=== PATIENT | male | born 1965 | race Caucasian/White ===

== ENCOUNTER 2018-02-27 14:35 | Emergency (ER) | payer MEDICAID ==
[~2018-02-27] VITALS: Ht 167.6 cm; Wt 79.5 kg
[~2018-02-27 14:35] MED LIST: AMOX-441 PO; LEVO100T PO; LORA-660 PO
[2018-02-27 14:43] VITALS: BP 117/83
== END 2018-02-27 17:21 | disposition home or self-care (01) ==
LOC: ER 14:35
DX: H92.02 Otalgia, left ear (principal); F15.90 Other stimulant use, unspecified, uncomplicated; Z00.00 Encounter for general adult medical examination without abnormal findings; Z79.899 Other long term (current) drug therapy
CPT/HCPCS: 99281

== ENCOUNTER 2018-06-04 18:25 | Emergency (ER) | payer MEDICAID ==
[~2018-06-04] VITALS: Ht 167.6 cm; Wt 79.5 kg
[2018-06-04 18:35] VITALS: BP 137/92
== END 2018-06-04 18:58 | disposition home or self-care (01) ==
LOC: ER 18:25
DX: Z02.89 Encounter for other administrative examinations (principal); F17.200 Nicotine dependence, unspecified, uncomplicated; F15.90 Other stimulant use, unspecified, uncomplicated; Z79.899 Other long term (current) drug therapy
CPT/HCPCS: 99281

== ENCOUNTER 2018-08-07 17:36 | Emergency (ER) | payer MEDICAID ==
[~2018-08-07] VITALS: Ht 167.6 cm; Wt 79.5 kg
[2018-08-07 17:47] VITALS: BP 130/86
--- NOTE | 2018-08-07 18:03 | NUR ---
Jac LEES stated to place verbal order for IM rocephin 250 mg now STAT.
[2018-08-07] MEDS ORDERED: CefTRIAXone 250MG IM Kit w/LIDOcaine IM ONE (18:05)
== END 2018-08-07 18:26 | disposition home or self-care (01) ==
LOC: ER 17:37
DX: Z20.2 Contact with and (suspected) exposure to infections with a predominantly sexual mode of transmission (principal); F15.90 Other stimulant use, unspecified, uncomplicated; Z79.899 Other long term (current) drug therapy
CPT/HCPCS: 96372; 99283; J0696